=== PATIENT | female | born 1965 | race Caucasian/White ===

== ENCOUNTER 2018-04-28 09:00 | Outpatient (RCR) | payer SELFPAY ==
[~2018-04-28 09:00] MED LIST: ABILIFY10 M1 PO; AMLODIPINE5 MG PO; ARIPIPRAZOLE5 MG PO; ASPIRIN 81 LOW81 MG PO; GREEN TEA PO; HYDROCHLOROT12.5 MG PO; HYDROXYZ PAM25 MG PO; IRON45 MG PO
== END 2018-04-29 23:59 | disposition home or self-care (01) | DRG 880 ==
LOC: PATHWAYS 09:00
PROVIDERS: ATTEND Specialist
DX: F41.1 Generalized anxiety disorder (principal); F33.8 Other recurrent depressive disorders; F10.10 Alcohol abuse, uncomplicated; Z91.5 Personal history of self-harm; Z63.8 Other specified problems related to primary support group